=== PATIENT | female | born 1950 | race Caucasian/White ===

== ENCOUNTER 2016-11-25 11:29 | Inpatient (IN) ==
--- NOTE | 2016-11-25 12:27 | Emergency Department Note ---
Arrival - Arrival Chief Complaint: Extremity Problem Stated Complaint: fluid on leg ED Nursing Triage Note: c/o lt leg swelling onset yesterday. Mode of Arrival: Wheelchair Limitations: No Limitations Source: Patient Time Seen by Provider: 11/25/16 11:53 - History of Present Illness HPI Narrative: This is a 66-year-old white female who is complaining of left leg swelling and pain that began yesterday. She states that years ago she was bitten by a brown recluse spider and had DVT in that extremity. She states that she is not taking any blood thinners, but she is on aspirin and has a filter. She denies any fevers, shortness of breath or any other problems presently. Onset (ago): day(s) (1) Consistency: constant Severity: moderate Quality: cramping Date of Last Menstrual Period: hyst Allergies/Adverse Reactions: Allergies Allergy/AdvReac Type Severity Reaction Status Date / Time No Known Allergies Allergy Unverified 11/25/16 11:41 Home Medications: Home Medications Medication Instructions Recorded Confirmed Type Aspirin EC Tab 81 mg PO DAILY 11/25/16 11/25/16 History Gabapentin 300 mg PO QPM 11/25/16 11/25/16 History Insulin Glargine [Lantus] 30 unit SUBCUT QPM 11/25/16 11/25/16 History Lovastatin 20 mg PO QPM 11/25/16 11/25/16 History glipiZIDE XL [Glucotrol Xl] 10 mg PO DAILY 11/25/16 11/25/16 History hydroCHLOROthiazide 25 mg PO DAILY 11/25/16 11/25/16 History [Hydrochlorothiazide] Review of System - Review of System 12 point system: reviewed and no additional remarkable complaints except as stated - Review of System Constitutional: Present: as per HPI. Absent: fever Musculoskeletal: Present: as per HPI, leg pain (And swelling) Medical,Surgical,& Family Hx - Medical History Cardio: History of: Hypertension Endocrine: History of: Diabetes Mellitus (NIDDM), Dyslipidemia Other: History of: Miscellaneous Medical Problems (dvt) - Surgical History Reproductive Surgeries: Surgical HX of;: Hysterectomy - Social History Smoking Status: Never smoker Frequency of Alcohol Use: None Type of Drug Use: None Exam Physical Examination: - General General appearance: [alert, in mild distress] - Head Head exam: [Present: atraumatic, normocephalic, normal inspection] - Eye Eye exam: [Present: normal appearance, PERRL, EOMI] - ENT ENT exam: [Present: normal exam, normal oropharynx, mucous membranes moist, TM' s normal bilaterally, normal external ear exam] - Neck Neck exam: [Present: normal inspection, full ROM, trachea midline] - Chest Chest inspection: [Present: normal inspection, symmetric chest wall rise] - Respiratory Respiratory exam: [Present: normal lung sounds bilaterally] - Cardiovascular Cardiovascular exam: [Present: regular rate, normal rhythm, normal heart sounds] - Abdominal Exam Abdominal exam: [Present: soft, normal bowel sounds] - Extremities Exam Extremities exam: [Present: normal inspection, full ROM. Exception: There is edema with erythema noted to the left lower extremity without pitting. PMS is intact.] - Back Exam Back exam: [Present: normal inspection, full ROM] - Neurological Exam Neurological exam: [Present: alert, oriented X3] - Psychiatric Psychiatric exam: [Present: normal affect, normal mood] - Skin Skin exam: [Present: warm, dry, intact, normal color] Vital Signs: Vital Signs Temperature 98.2 F 11/25/16 11:50 Pulse Rate 99 H 11/25/16 11:50 Respiratory Rate 18 11/25/16 11:50 Blood Pressure 130/76 11/25/16 11:50 O2 Sat by Pulse Oximetry 96 11/25/16 11:38 Course - Consultations Consultation #1: I spoke with Andrez and hospitalist services about the patient. They will be down to see the patient in nonurgent. Time: 12:30 Results - Labs CBC & BMP: 11/25/16 12:23 11/25/16 12:23 Lab Results: I have reviewed the patients labs - Diagnostic Findings Procedure: Ultrasound: image reviewed by me, report reviewed by me (DVT of the left lower extremity) Disposition Clinical Impression: Deep vein thrombosis of lower extremity Case discussed with: patient Disposition: Still a Patient Time of Disposition: 13:26
[2016-11-25] MEDS ORDERED: HEPARIN 1,000 UNIT/1 ML VIAL IV STA (12:31)
[2016-11-25] MEDS ORDERED: HEPARIN 5,000 UNIT/1 ML VIAL ONE (12:39)
[2016-11-25 12:42] LABS: Basophils # 0.1 10*3/uL (0.0-0.2); Basophils % 0.6 % (0.0-0.8); Eosinophils # 0.1 10*3/uL (0.0-0.87); Eosinophils % 0.6 % (0.00-10.9); Hematocrit 42.6 VOL% (35.7-47.0); Hemoglobin 14.7 GM/DL (12.0-16.0); Immature Granulocytes % 0.5 %; Immature Granulocytes Absolute 0.05 #; Lymphocytes % 9.7 % (21.3-54.2); Mean Corpuscular HGB Conc 34.5 GM/DL (32-36); Mean Corpuscular Hemoglobin 30 PG (27-34); Mean Corpuscular Volume 87.8 FL (87-102); Mean Platelet Volume 11.8 FL (9.6-12.0); Monocytes # 0.5 10*3/uL (0.11-0.8); Monocytes % 5.2 % (1.7-12.7); Neutrophils # 8.3 10*3/uL (1.4-7.4); Neutrophils % 83.4 % (38.7-73.9); Platelet Count 137 T/CUMM (130-400); Red Blood Count 4.85 MC/CUMM (3.8-5.5); Red Cell Distribution Width 12.5 % (9.3-17.3); White Blood Count 9.9 T/CUMM (4-12)
--- NOTE | 2016-11-25 12:48 | Ultrasound Report ---
US venous doppler LE LT Indication: Edema/pain/history of DVT. Comparison: None. Technique: Grayscale, spectral, and color Doppler interrogation of the left lower extremity veins was performed. Augmentation and compression was performed. Findings: Grayscale, color Doppler, and pulsed Doppler evaluation of the veins of the left lower extremity demonstrates occlusive thrombus involving the left common femoral vein, saphenous vein, superficial femoral vein, and popliteal vein. IMPRESSION: Left lower extremity DVT. Discussed with Tate Yates NP at end of exam. PROCEDURE INTERPRETED AT [facility] DEPARTMENT OF RADIOLOGY Final Report Signed by: Dr Ger Niño
[2016-11-25 12:56] LABS: Apearance,Urine Slightly Hazy (Clear); Bilirubin,Urine Negative (Negative); Blood, Urine Negative (Negative); Glucose,Urine (UA) 50 mg/dL (Negative); Hyaline Casts,Urine 5 /LPF (0-3); Ketones,Urine Negative (Negative); Mucus,Urine Occasional /LPF (Occasional); Nitrite,Urine Negative (Negative); Protein,Urine Negative; RBC,Urine 1 /HPF (0-4); Squamous Epithelial Cell,Urine Occasional /HPF (0-10); Urine Color Yellow (Yellow); Urine Specific Gravity 1.025 (1.001-1.035); Urine Urobilinogen < 2.0 EU/DL (0.2-1.0); WBC,Urine 2 /HPF (0-6)
[2016-11-25 13:06] LABS: INR 1.2; PT Patient Result 12.3 SECS
[2016-11-25 13:18] LABS: Calcium 9.1 MG/DL (8.5-10.1); Osmolality,Calculated 287.5 MOS/KG (273-304); Potassium 3.3 MMOL/L (3.5-5.1)
--- NOTE | 2016-11-25 14:12 | Hospitalist History & Physical ---
<Andrez Leroy - Last Filed: 11/25/16 16:04> Assessment and Plan - Time spent with patient Time spent with patient: Greater than 30 minutes (1) Deep vein thrombosis of lower extremity Status: Acute Assessment and plan: Venous Doppler of left lower extremity shows DVT. Patient is being admitted for observation and treatment. The following labs are pending: Anti-thrombin 3 , factor V Leiden, homocystine, lupus anticoagulant, coagulopathy workup. Patient has been started on Eliquis 10 p.o. twice daily Current Visit: Yes (2) Diabetes mellitus Status: Acute Assessment and plan: Sliding-scale insulin per protocol. Lantus 30 units subcu every afternoon. Accu-Cheks ACHS Current Visit: Yes (3) Hypertension Status: Acute Assessment and plan: Continue home meds. Current Visit: Yes (4) Hyperlipidemia Status: Acute Assessment and plan: Continue home statin Current Visit: Yes (5) Peripheral neuropathy Status: Acute Current Visit: Yes History of Present Illness Chief complaint: Right LE edema History of present illness: Ms. Burns is a 66 year old white female with an extensive past medical history significant for previous DVT with IVC filter, IDDM, hypertension, hyperlipidemia who presents to the ED complaining of pain in left lower extremity and associated swelling with onset yesterday. 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 She notes that she has had an IVC filter placed for years but has not been on any anticoagulation. Patient does note that she takes aspirin daily. On exam, the patient is lying in bed in no apparent distressed. She reports that she does experience pain in her right extremity when she walks and has to stop frequently. Venous doppler of the LLE show occlusive thrombus involving the left common femoral vein, saphenous vein, superficial femoral vein and popliteal vein. Patient denies any other pain at this time. Case has been discussed with Dr. Hopkins. Patient will be admitted to the hospital medicine service for further evaluation and treatment. Home Medications Medication Instructions Recorded Confirmed Type Aspirin EC Tab 81 mg PO DAILY 11/25/16 11/25/16 History Gabapentin 300 mg PO QPM 11/25/16 11/25/16 History Insulin Glargine [Lantus] 30 unit SUBCUT QPM 11/25/16 11/25/16 History Lovastatin 20 mg PO QPM 11/25/16 11/25/16 History glipiZIDE XL [Glucotrol Xl] 10 mg PO DAILY 11/25/16 11/25/16 History hydroCHLOROthiazide 25 mg PO DAILY 11/25/16 11/25/16 History [Hydrochlorothiazide] Allergies Allergy/AdvReac Type Severity Reaction Status Date / Time No Known Allergies Allergy Unverified 11/25/16 11:41 Medical,Surgical,& Family Hx - Medical History Cardio: History of: Hypertension Endocrine: History of: Diabetes Mellitus (NIDDM), Dyslipidemia Other: History of: Miscellaneous Medical Problems (dvt) - Surgical History Reproductive Surgeries: Surgical HX of;: Hysterectomy - Family History Family History: Reports;: Family Hypertension - Social History Smoking Status: Never smoker Frequency of Alcohol Use: None Type of Drug Use: None Marital Status: Lives With:: Spouse Functional capacity: independent ambulation - Constitutional Constitutional: Present: weakness. Absent: chills, fatigue, headache(s) - EENT Eyes: Absent: blurry vision, loss of vision Ears: Absent: decreased hearing, ear pain Nose, mouth and throat: Absent: headache(s) - Cardiovascular Cardiovascular: Present: edema. Absent: chest pain at rest, dyspnea, dyspnea on exertion, radiating jaw, neck or arm pain, orthopnea - Respiratory Respiratory: Absent: cough, dyspnea, dyspnea on exertion, wheezing, pain on inspiration - Gastrointestinal Gastrointestinal: Absent: abdominal pain, cramping, diarrhea, nausea, vomiting - Musculoskeletal Musculoskeletal: Present: limited range of motion, other (left lower extremity swelling) - Neurological Neurological: Present: numbness, paresthesias. Absent: abnormal gait, dizziness , syncope - Psychiatric Psychiatric: Absent: anxiety - Endocrine Endocrine: Present: fatigue. Absent: cold intolerance, heat intolerance - Hematologic/Lymphatic Hematologic/Lymphatic: Absent: easy bleeding, easy bruising Exam - Constitutional Vitals: Period Temp Pulse Resp BP Sys/Olmos Pulse Ox Last 24 Hr 98.2 F-98.2 F 86-99 18-18 130-184/76-98 96 General appearance: no acute distress, morbidly obese - Head Head exam: Present: normal inspection, normocephalic, atraumatic - Eye Eye exam: Present: EOMI Pupils: Present: MARCUS - ENT ENT exam: Present: normal exam, normal external ear exam - Neck Neck exam: Present: normal inspection. Absent: lymphadenopathy, tenderness, thyromegaly - Respiratory Respiratory exam: Present: clear to auscultation bilaterally. Absent: rales, rhonchi, wheezes - Cardiovascular Cardiovascular exam: Present: regular rate and rhythm. Absent: bradycardia, irregular rhythm - GI/Abdominal GI/Abdominal exam: Present: normal bowel sounds, soft. Absent: ascites, distended, mass, tenderness - Extremities Exam Extremities exam: Present: normal capillary refill, calf tenderness, edema. Absent: full ROM - Back Exam Back exam: Present: normal inspection. Absent: CVA tenderness (L), CVA tenderness (R) - Neurological Exam Neurological exam: Present: alert, oriented X3, CN II-XII intact - Psychiatric Psychiatric exam: Present: normal affect, normal mood - Skin Skin exam: Present: normal color, warm, dry. Absent: abrasion Results - Labs CBC & BMP: 11/25/16 12:23 11/25/16 12:23 Lab Results: I have reviewed the past 24 hour labs - EKG EKG results: interpreted by ERMD - Diagnostic Findings Procedure: Ultrasound: image reviewed by me, report reviewed by me (DVT) <Rosy Hopkins - Last Filed: 11/25/16 16:43> Assessment and Plan (1) Deep vein thrombosis of lower extremity Status: Acute Assessment and plan: Verify the patient had a filter placed. Will get a KUB. Current Visit: Yes (2) Morbid obesity Status: Acute Assessment and plan: Needs to lose weight. Current Visit: Yes (3) Diabetes mellitus Status: Acute Current Visit: Yes (4) Hyperlipidemia Status: Acute Current Visit: Yes (5) Hypertension Status: Acute Assessment and plan: Hold hydrochlorothiazide Current Visit: Yes (6) Hypokalemia Status: Acute Assessment and plan: Replacing and recheck in am Current Visit: Yes (7) Chronic renal failure, stage 3 (moderate) Status: Acute Assessment and plan: Hold hydrochlorothiazide recheck in a.m. Current Visit: Yes History of Present Illness History of present illness: Ms. Burns is a 66 year old female seen and examined. History and physical reviewed and edited. Patient has a difficult historian as she gives me more details then you need to now. She still has not given me a good reason why she had a filter. Exam - Constitutional Vitals: Period Temp Pulse Resp BP Sys/Olmos Pulse Ox Last 24 Hr 97.6 F-98.2 F 86-99 18-20 130-184/76-98 96-98 - Eye Eye exam: Absent: scleral icterus Pupils: Present: normal accommodation Results - Labs CBC & BMP: 11/25/16 12:23 11/25/16 12:23 - Diagnostic Findings Procedure: Ultrasound: report reviewed by me
[2016-11-25] MEDS ORDERED: GLUCAGON 1 MG VIAL IM PRN (15:47)
[2016-11-25] MEDS ORDERED: ONDANSETRON 4 MG/2 ML VIAL IV PRN (15:47)
[2016-11-25] MEDS ORDERED: ACETAMINOPHEN 325 MG TABLET PO PRN (15:47)
[2016-11-25] MEDS ORDERED: DEXTROSE 50% 25 GM/50 ML VIAL IV PRN (15:47)
[2016-11-25] MEDS ORDERED: POTASSIUM CHLORIDE 20 MEQ TABLET PO ONE (16:42)
[2016-11-25] MEDS: APIXABAN 5 MG TABLET PO SCH ×2 (17:15→20:20)
--- NOTE | 2016-11-25 18:20 | XRay Report ---
KUB. Indication: Looking for IVC filter. An IVC filter is in place, spanning from the lower aspect of T12 to the upper aspect of L2. There is a left iliac vein stent in place as well. The bowel gas pattern is normal. No evidence of bowel obstruction. Mild degenerative changes of the spinal column and hips. Impression: An IVC filter is in place, and there is also visible a left iliac vein stent. PROCEDURE INTERPRETED AT [facility] DEPARTMENT OF RADIOLOGY Final Report Signed by: Dr. Eulalia Boothe
[2016-11-25] MEDS: INSULIN LISPRO 100 UNIT/ML SUBCUT SCH ×2 (18:30→20:34)
[2016-11-25] MEDS ORDERED: GABAPENTIN 300 MG CAPSULE PO SCH (19:00)
[2016-11-25] MEDS ORDERED: LOVASTATIN 20 MG TABLET PO SCH (19:00)
[2016-11-25] MEDS ORDERED: INSULIN GLARGINE 100 UNIT/ML SUBCUT SCH (19:00)
[2016-11-26 06:59] LABS: Basophils # 0.1 10*3/uL (0.0-0.2); Basophils % 0.7 % (0.0-0.8); Eosinophils # 0.1 10*3/uL (0.0-0.87); Eosinophils % 1.9 % (0.00-10.9); Hematocrit 41.8 VOL% (35.7-47.0); Hemoglobin 14.2 GM/DL (12.0-16.0); Immature Granulocytes % 0.4 %; Immature Granulocytes Absolute 0.03 #; Lymphocytes # 1.6 10*3/uL (1.4-4.0); Lymphocytes % 22.2 % (21.3-54.2); Mean Corpuscular Hemoglobin 30 PG (27-34); Mean Corpuscular Volume 88.2 FL (87-102); Mean Platelet Volume 11.5 FL (9.6-12.0); Monocytes # 0.5 10*3/uL (0.11-0.8); Monocytes % 6.3 % (1.7-12.7); Neutrophils % 68.5 % (38.7-73.9); Platelet Count 137 T/CUMM (130-400); Red Blood Count 4.74 MC/CUMM (3.8-5.5); Red Cell Distribution Width 12.6 % (9.3-17.3); White Blood Count 7.4 T/CUMM (4-12)
[2016-11-26 07:33] LABS: Calcium 8.9 MG/DL (8.5-10.1); Osmolality,Calculated 284.4 MOS/KG (273-304); Potassium 3.3 MMOL/L (3.5-5.1)
[2016-11-26] MEDS ORDERED: hydroCHLOROthiazide 25 MG TABLET PO SCH (09:00)
[2016-11-26] MEDS ORDERED: ASPIRIN EC 81 MG TABLET PO SCH (09:00)
[2016-11-26] MEDS ORDERED: POTASSIUM CHLORIDE 20 MEQ TABLET PO ONE (09:50)
[2016-11-26] MEDS: APIXABAN 5 MG TABLET PO SCH (10:12)
[2016-11-26] MEDS: INSULIN LISPRO 100 UNIT/ML SUBCUT SCH ×2 (10:13→11:45)
--- NOTE | 2016-11-26 10:45 | Discharge Summary ---
Hospital Course - Hospital Course Hospital Course: 66-year-old morbidly obese female with a history of hypertension and diabetes presents with left lower extremity swelling. Patient already has a filter in place but could not tell me why. Hypercoagulable workup has been ordered. Venous Doppler showed an extensive thrombus occluding the left common femoral vein, saphenous vein, superficial femoral and popliteal vein. Patient denies any estrogen supplementation. The patient has never had a clot before then she will need 3 months of treatment if however she has had a DVT or PE before she will need to have a lifetime treatment. Patient will follow up with her primary care physician for the results of the hypercoagulable workup. Follow- up at [facility] in 1-2 weeks. - Time spent with patient Time with patient DS: Less than 30 minutes (25 min) Diagnosis - Discharge Diagnosis (1) Deep vein thrombosis of lower extremity Status: Acute (2) Morbid obesity Status: Acute (3) Diabetes mellitus Status: Acute (4) Hyperlipidemia Status: Acute (5) Hypertension Status: Acute (6) Hypokalemia Status: Acute (7) Chronic renal failure, stage 3 (moderate) Status: Acute Discharge Plan - Discharge Data Disposition: Disch To Home/Self Care Condition at Discharge: Stable Discharge Diet: diabetic diet Activity: resume usual activities as tolerated Hygiene: no restrictions Weight Bearing at Discharge: full weight bearing Driving: no restrictions - Discharge Medications New Losartan [Cozaar] 25 mg PO DAILY #30 tablet Apixaban [Eliquis] 5 mg PO BID #72 tablet Continue Insulin Glargine [Lantus] 30 unit SUBCUT QPM Gabapentin 300 mg PO QPM glipiZIDE XL [Glucotrol Xl] 10 mg PO DAILY Lovastatin 20 mg PO QPM Discontinued hydroCHLOROthiazide [Hydrochlorothiazide] 25 mg PO DAILY Aspirin EC Tab 81 mg PO DAILY - Follow Up or Referral Follow Up: [facility] [Provider Group] - 2 Weeks - Forms/Instructions Exam - Constitutional Vitals: Period Temp Pulse Resp BP Sys/Olmos Pulse Ox Last 24 Hr 97.3 F-98.5 F 75-99 18-20 127-184/63-98 95-98 General appearance: no acute distress, morbidly obese - Respiratory Respiratory exam: Present: clear to auscultation bilaterally. Absent: rhonchi, wheezes - Cardiovascular Cardiovascular exam: Present: regular rate and rhythm. Absent: systolic murmur - GI/Abdominal GI/Abdominal exam: Present: normal bowel sounds, soft. Absent: tenderness - Extremities Exam Extremities exam: Present: normal capillary refill, edema - Neurological Exam Neurological exam: Present: alert, oriented X3 Discharge Results Procedures and tests throughout hospitalization: Pending Orders 11/25/16 16:21 Anti-Thrombin III Routine Factor V Leiden (R506Q) Mutati Routine Homocysteine Routine Lupus Anticoag Prof Routine MTHFR C677T Mutation Analysis, Routine Phospholipid Ab, IgG/M Routine Protein C Activity Plasma Routine Protein C Antigen Routine Protein S Ag, P Routine Prothrombin [id number] Mutation, Routine Labs on day of discharge: Labs from last 24 hours 11/26/16 11/26/16 11/26/16 07:10 06:45 06:45 WBC 7.4 RBC 4.74 Hgb 14.2 Hct 41.8 MCV 88.2 MCH 30 MCHC 34.0 RDW 12.6 Plt Count 137 MPV 11.5 Neut % (Auto) 68.5 Lymph % (Auto) 22.2 [place] % (Auto) 6.3 Eos % (Auto) 1.9 Baso % (Auto) 0.7 Neut # (Auto) 5.0 Lymph # (Auto) 1.6 [place] # (Auto) 0.5 Eos # (Auto) 0.1 Baso # (Auto) 0.1 Immature Gran % 0.4 Nucleated RBC % 0.0 Immature Gran # 0.03 Nucleated RBCs # 0.00 INR PT Patient/Control Mix Sodium 140 Potassium 3.3 L Chloride 101 Carbon Dioxide 30 Anion Gap 12.3 BUN 21 H Creatinine 1.30 H GFR Calculation 53 BUN/Creatinine Ratio 16.00 Glucose 157 H POC Glucose 147 H Calculated Osmolality 284.4 Calcium 8.9 Urine Color Urine Appearance Urine pH Ur Specific [place] Urine Protein Urine Glucose (UA) Urine Ketones Urine Blood Urine Nitrate Urine Bilirubin Urine Urobilinogen Urine Leukocytes Urine RBC Urine WBC Ur Squamous Epith Cells Hyaline Casts Urine Mucus Ur Culture Indicated? 11/25/16 11/25/16 11/25/16 19:32 17:23 12:23 WBC RBC Hgb Hct MCV MCH MCHC RDW Plt Count MPV Neut % (Auto) Lymph % (Auto) [place] % (Auto) Eos % (Auto) Baso % (Auto) Neut # (Auto) Lymph # (Auto) [place] # (Auto) Eos # (Auto) Baso # (Auto) Immature Gran % Nucleated RBC % Immature Gran # Nucleated RBCs # INR PT Patient/Control Mix Sodium 139 Potassium 3.3 L Chloride 102 Carbon Dioxide 24 Anion Gap 16.3 H BUN 23 H Creatinine 1.50 H GFR Calculation 45 BUN/Creatinine Ratio 15.00 Glucose 218 H POC Glucose 191 H 110 H Calculated Osmolality 287.5 Calcium 9.1 Urine Color Urine Appearance Urine pH Ur Specific [place] Urine Protein Urine Glucose (UA) Urine Ketones Urine Blood Urine Nitrate Urine Bilirubin Urine Urobilinogen Urine Leukocytes Urine RBC Urine WBC Ur Squamous Epith Cells Hyaline Casts Urine Mucus Ur Culture Indicated? 11/25/16 11/25/16 11/25/16 12:23 12:23 12:23 WBC 9.9 RBC 4.85 Hgb 14.7 Hct 42.6 MCV 87.8 MCH 30 MCHC 34.5 RDW 12.5 Plt Count 137 MPV 11.8 Neut % (Auto) 83.4 H Lymph % (Auto) 9.7 L [place] % (Auto) 5.2 Eos % (Auto) 0.6 Baso % (Auto) 0.6 Neut # (Auto) 8.3 H Lymph # (Auto) 1.0 L [place] # (Auto) 0.5 Eos # (Auto) 0.1 Baso # (Auto) 0.1 Immature Gran % 0.5 Nucleated RBC % 0.0 Immature Gran # 0.05 Nucleated RBCs # 0.00 INR 1.2 PT Patient/Control Mix 12.3 Sodium Potassium Chloride Carbon Dioxide Anion Gap BUN Creatinine GFR Calculation BUN/Creatinine Ratio Glucose POC Glucose Calculated Osmolality Calcium Urine Color Yellow Urine Appearance Slightly hazy Urine pH 5.0 Ur Specific [place] 1.025 Urine Protein Negative Urine Glucose (UA) 50 Urine Ketones Negative Urine Blood Negative Urine Nitrate Negative Urine Bilirubin Negative Urine Urobilinogen < 2.0 H Urine Leukocytes Trace Urine RBC 1 Urine WBC 2 Ur Squamous Epith Cells Occasional Hyaline Casts 5 Urine Mucus Occasional Ur Culture Indicated? Not indicated DS: Provider Date of admission: 11/25/16 13:31 Primary care physician: . No PCP Attending physician on admission: Rosy Hopkins MD Consults: 11/26/16 09:50 Consult to Case Mgmt/Social Srvs [CONS] Routine Reason for Case Mgmt/Social Srvs: Other Consult Comment: [employer] savings card Discharging clinician: Rosy Hopkins MD
[2016-11-26 11:58] VITALS: BP 133/64
[2016-11-27] MEDS ORDERED: LOSARTAN 25 MG TABLET PO SCH (09:00)
[2016-11-27 11:25] LABS: Protein C Activity Plasma 109 % (70 - 150)
[2016-11-27 15:19] LABS: Phospholipid Ab IgM, S 14.1 MPL
[2016-11-28 09:50] LABS: Factor V Leiden (R506Q) Mutati Negative (Negative); Methylenetetrahydrofol Reduc M Negative (Negative)
[2016-11-28 15:19] LABS: Homocysteine 15 mcmol/L
[2016-11-28 16:54] LABS: Protein C Antigen 91 % (70-150)
[2016-12-02 10:42] LABS: DRVVT Mix Ratio (Mayo Reflex) 1.2 ratio (0.0 - 1.1); Thrombin Time (Bovine), P 20 sec (15 - 23)
[2016-12-03 09:20] LABS: DRVVT Screen Ratio 1.2 ratio (0.0 - 1.1); INR 1.2
== END 2016-11-26 14:14 | disposition home health service (06) | DRG 300 ==
LOC: N.ED 11:29 → N.5E 13:31
PROVIDERS: ADMIT Internal Medicine; ATTEND Internal Medicine

== ENCOUNTER 2017-11-29 21:51 | Inpatient (IN) ==
[2017-11-30] MEDS ORDERED: ONDANSETRON 4 MG/2 ML VIAL ONE (02:23)
[2017-11-30] MEDS ORDERED: ONDANSETRON 4 MG/2 ML VIAL IV STA (02:27)
[2017-11-30] MEDS ORDERED: SODIUM CHLORIDE 0.9% 1,000 ML IV STA (02:27)
[2017-11-30 02:32] LABS: Basophils % 0.4 % (0.0-0.8); Hematocrit 47.7 VOL% (35.7-47.0); Hemoglobin 15.9 GM/DL (12.0-16.0); Immature Granulocytes % 0.3 %; Immature Granulocytes Absolute 0.03 #; Lymphocytes # 1.5 10*3/uL (1.4-4.0); Lymphocytes % 13.4 % (21.3-54.2); Mean Corpuscular HGB Conc 33.3 GM/DL (32-36); Mean Corpuscular Hemoglobin 30 PG (27-34); Mean Corpuscular Volume 90.3 FL (87-102); Mean Platelet Volume 11.9 FL (9.6-12.0); Monocytes # 0.7 10*3/uL (0.11-0.8); Monocytes % 5.9 % (1.7-12.7); Neutrophils # 9.1 10*3/uL (1.4-7.4); Platelet Count 184 T/CUMM (130-400); Red Blood Count 5.28 MC/CUMM (3.8-5.5); White Blood Count 11.3 T/CUMM (4-12)
[2017-11-30 02:44] LABS: Albumin 3.6 G/DL (3.4-5.0); Bilirubin,Total 0.7 MG/DL (0.2-1.0); Lactic Acid 0.7 MMOL/L (0.4-2.0); Osmolality,Calculated 276.7 MOS/KG (273-304); Potassium 4.3 MMOL/L (3.5-5.1); Total Protein 7.8 G/DL (6.4-8.3)
[2017-11-30 03:05] LABS: INR 1.1; PT Patient Result 11.9 SECS; Partial Thromboplastin Time 36.3 SECS (0-40)
[2017-11-30 04:13] LABS: Apearance,Urine Slightly Hazy (Clear); Bilirubin,Urine Negative (Negative); Blood, Urine Negative (Negative); Glucose,Urine (UA) Negative (Negative); Hyaline Casts,Urine 2 /LPF (0-3); Ketones,Urine 80 mg/dL (Negative); Mucus,Urine Occasional /LPF (Occasional); Nitrite,Urine Negative (Negative); Protein,Urine 30 MG/DL; RBC,Urine 9 /HPF (0-4); Squamous Epithelial Cell,Urine Occasional /HPF (0-10); Urine Color Amber (Yellow); Urine Specific Gravity 1.028 (1.001-1.035); WBC,Urine 142 /HPF (0-6)
[2017-11-30] MEDS ORDERED: cefTRIAXone 1,000 MG in SODIUM CHLORIDE 0.9% 100 ML IV STA (05:35)
[2017-11-30] MEDS ORDERED: ACETAMINOPHEN 325 MG TABLET PO PRN (08:48)
[2017-11-30] MEDS ORDERED: GLUCAGON 1 MG VIAL IM PRN (08:48)
[2017-11-30] MEDS ORDERED: DEXTROSE 50% 25 GM/50 ML VIAL IV PRN (08:48)
[2017-11-30] MEDS ORDERED: PROMETHAZINE 25 MG/1 ML VIAL IM PRN (08:48)
[2017-11-30] MEDS ORDERED: MORPHINE 4 MG/1 ML VIAL IV PRN (08:48)
[2017-11-30] MEDS ORDERED: ONDANSETRON 4 MG/2 ML VIAL IV PRN (08:48)
[2017-11-30] MEDS: PANTOPRAZOLE 40 MG TABLET PO SCH (09:05)
[2017-11-30] MEDS: LACTATED RINGERS 1,000 ML IV SCH ×2 (09:43→21:56)
[2017-11-30] MEDS: PIPERACILLIN/TAZOBACTAM 3,375 MG in SODIUM CHLORIDE 0.9% 100 ML IV SCH ×2 (09:43→17:16)
[2017-11-30] MEDS: INSULIN REGULAR 100 UNIT/ML SUBCUT SCH ×4 (13:09→21:56)
[2017-11-30] MEDS ORDERED: PNEUMOCOCCAL VACCINE (13 VALENT) 0.5 ML SYRINGE IM ONE (13:52)
[2017-11-30] MEDS: LOVASTATIN 20 MG TABLET PO SCH (21:56)
[2017-11-30] MEDS: GABAPENTIN 300 MG CAPSULE PO SCH (21:56)
[2017-12-01] MEDS: PIPERACILLIN/TAZOBACTAM 3,375 MG in SODIUM CHLORIDE 0.9% 100 ML IV SCH ×3 (01:04→18:15)
[2017-12-01] MEDS: LACTATED RINGERS 1,000 ML IV SCH ×2 (02:21→09:40)
[2017-12-01 06:53] LABS: Basophils % 0.4 % (0.0-0.8); Eosinophils % 0.1 % (0.00-10.9); Hematocrit 44.2 VOL% (35.7-47.0); Hemoglobin 14.8 GM/DL (12.0-16.0); Immature Granulocytes % 0.6 %; Immature Granulocytes Absolute 0.06 #; Lymphocytes # 0.9 10*3/uL (1.4-4.0); Lymphocytes % 8.8 % (21.3-54.2); Mean Corpuscular HGB Conc 33.5 GM/DL (32-36); Mean Corpuscular Hemoglobin 30 PG (27-34); Mean Corpuscular Volume 90.8 FL (87-102); Mean Platelet Volume 12.1 FL (9.6-12.0); Monocytes # 0.8 10*3/uL (0.11-0.8); Monocytes % 7.5 % (1.7-12.7); Neutrophils # 8.3 10*3/uL (1.4-7.4); Neutrophils % 82.6 % (38.7-73.9); Platelet Count 151 T/CUMM (130-400); Red Blood Count 4.87 MC/CUMM (3.8-5.5); Red Cell Distribution Width 11.9 % (9.3-17.3); White Blood Count 10.1 T/CUMM (4-12)
[2017-12-01 07:15] LABS: Albumin 3.1 G/DL (3.4-5.0); Bilirubin,Total 0.8 MG/DL (0.2-1.0); Calcium 8.8 MG/DL (8.5-10.1); Osmolality,Calculated 274.8 MOS/KG (273-304); Potassium 4.3 MMOL/L (3.5-5.1); Total Protein 6.9 G/DL (6.4-8.3)
[2017-12-01] MEDS: INSULIN REGULAR 100 UNIT/ML SUBCUT SCH ×4 (08:36→21:07)
[2017-12-01] MEDS: PANTOPRAZOLE 40 MG TABLET PO SCH (09:41)
[2017-12-01] MEDS ORDERED: hydrALAZINE 20 MG/1 ML VIAL IV ONE (13:50)
[2017-12-01] MEDS: LOVASTATIN 20 MG TABLET PO SCH (21:05)
[2017-12-01] MEDS: GABAPENTIN 300 MG CAPSULE PO SCH (21:05)
[2017-12-02] MEDS: PIPERACILLIN/TAZOBACTAM 3,375 MG in SODIUM CHLORIDE 0.9% 100 ML IV SCH ×2 (01:42→11:29)
[2017-12-02] MEDS: LACTATED RINGERS 1,000 ML IV SCH ×4 (01:44→18:53)
[2017-12-02] MEDS ORDERED: TISSUE ADHESIVE 1 EACH APPLICATOR TOP ONE (06:35)
[2017-12-02] MEDS ORDERED: LIDOCAINE 1%/EPI INJ 20 ML VIAL ONE (06:35)
[2017-12-02] MEDS: PANTOPRAZOLE 40 MG TABLET PO SCH (08:24)
[2017-12-02] MEDS: INSULIN REGULAR 100 UNIT/ML SUBCUT SCH ×4 (08:24→20:20)
[2017-12-02] MEDS ORDERED: MORPHINE 4 MG/1 ML VIAL IV PRN (09:40)
[2017-12-02] MEDS ORDERED: GLUCAGON 1 MG VIAL IM PRN (09:40)
[2017-12-02] MEDS ORDERED: ONDANSETRON 4 MG/2 ML VIAL IV PRN (09:40)
[2017-12-02] MEDS ORDERED: PROMETHAZINE 25 MG/1 ML VIAL IM PRN (09:40)
[2017-12-02] MEDS ORDERED: DEXTROSE 50% 25 GM/50 ML VIAL IV PRN (09:40)
[2017-12-02] MEDS ORDERED: PROPOFOL 200 MG/20 ML VIAL IV ONE (09:44)
[2017-12-02] MEDS ORDERED: SEVOFLURANE 1 UNIT/15 MINUTE INH ONE (09:44)
[2017-12-02] MEDS ORDERED: KETOROLAC 30 MG/1 ML VIAL ONE (09:45)
[2017-12-02] MEDS ORDERED: fentaNYL 100 MCG/2 ML VIAL ONE (09:45)
[2017-12-02] MEDS ORDERED: MIDAZOLAM 2 MG/2 ML VIAL ONE (09:45)
[2017-12-02] MEDS ORDERED: ONDANSETRON 4 MG/2 ML VIAL ONE (09:45)
[2017-12-02] MEDS ORDERED: ACETAMINOPHEN 1,000 MG/100 ML VIAL IV ONE (09:45)
[2017-12-02] MEDS ORDERED: ROCURONIUM 100 MG/10 ML VIAL IV ONE (09:45)
[2017-12-02] MEDS ORDERED: hydrALAZINE 20 MG/1 ML VIAL ONE (09:54)
[2017-12-02] MEDS ORDERED: hydrALAZINE 20 MG/1 ML VIAL IV ONE (09:55)
[2017-12-02 10:04] LABS: Basophils % 0.3 % (0.0-0.8); Eosinophils % 0.2 % (0.00-10.9); Hematocrit 41.6 VOL% (35.7-47.0); Hemoglobin 13.7 GM/DL (12.0-16.0); Immature Granulocytes % 0.4 %; Immature Granulocytes Absolute 0.05 #; Lymphocytes # 0.9 10*3/uL (1.4-4.0); Lymphocytes % 7.6 % (21.3-54.2); Mean Corpuscular HGB Conc 32.9 GM/DL (32-36); Mean Corpuscular Hemoglobin 31 PG (27-34); Mean Corpuscular Volume 92.7 FL (87-102); Mean Platelet Volume 11.7 FL (9.6-12.0); Monocytes # 0.8 10*3/uL (0.11-0.8); Monocytes % 6.7 % (1.7-12.7); Neutrophils # 10.2 10*3/uL (1.4-7.4); Neutrophils % 84.8 % (38.7-73.9); Platelet Count 163 T/CUMM (130-400); Red Blood Count 4.49 MC/CUMM (3.8-5.5); Red Cell Distribution Width 11.9 % (9.3-17.3); White Blood Count 12.1 T/CUMM (4-12)
[2017-12-02 10:21] LABS: Calcium 8.4 MG/DL (8.5-10.1); Potassium 4.2 MMOL/L (3.5-5.1)
[2017-12-02] MEDS: LOVASTATIN 20 MG TABLET PO SCH (20:21)
[2017-12-02] MEDS: GABAPENTIN 300 MG CAPSULE PO SCH (20:21)
[2017-12-03] MEDS: LACTATED RINGERS 1,000 ML IV SCH (02:45)
[2017-12-03] MEDS ORDERED: ENOXAPARIN 40 MG/0.4 ML SYRINGE SUBCUT SCH (03:20)
[2017-12-03 06:08] LABS: Basophils % 0.3 % (0.0-0.8); Eosinophils % 0.3 % (0.00-10.9); Hematocrit 39.5 VOL% (35.7-47.0); Immature Granulocytes % 0.6 %; Immature Granulocytes Absolute 0.04 #; Lymphocytes # 0.9 10*3/uL (1.4-4.0); Lymphocytes % 12.2 % (21.3-54.2); Mean Corpuscular HGB Conc 32.9 GM/DL (32-36); Mean Corpuscular Hemoglobin 30 PG (27-34); Mean Corpuscular Volume 91.6 FL (87-102); Mean Platelet Volume 12.2 FL (9.6-12.0); Monocytes # 0.5 10*3/uL (0.11-0.8); Monocytes % 6.2 % (1.7-12.7); Neutrophils # 5.8 10*3/uL (1.4-7.4); Neutrophils % 80.4 % (38.7-73.9); Platelet Count 151 T/CUMM (130-400); Red Blood Count 4.31 MC/CUMM (3.8-5.5); Red Cell Distribution Width 11.9 % (9.3-17.3); White Blood Count 7.2 T/CUMM (4-12)
[2017-12-03 06:40] LABS: Calcium 8.3 MG/DL (8.5-10.1); Osmolality,Calculated 275.5 MOS/KG (273-304); Potassium 3.8 MMOL/L (3.5-5.1)
[2017-12-03] MEDS: INSULIN REGULAR 100 UNIT/ML SUBCUT SCH ×2 (08:55→12:26)
[2017-12-03] MEDS ORDERED: APIXABAN 5 MG TABLET PO SCH (09:00)
[2017-12-03 10:47] VITALS: BP 120/84
== END 2017-12-03 16:00 | disposition home or self-care (01) | DRG 419 ==
LOC: N.ED 21:51 → N.EDINP 11-30 07:00 → N.2W 11-30 12:28 → N.3E 11-30 16:32
PROVIDERS: ADMIT Surgery; ATTEND Surgery
PROC: LAPCHOL (2017-12-02 06:59)

== ENCOUNTER 2021-02-08 12:17 | Observation (INO) ==
[2021-02-08 13:35] LABS: Basophils # 0.1 10*3/uL (0.0-0.2); Basophils % 0.7 % (0.0-0.8); Eosinophils # 0.1 10*3/uL (0.0-0.87); Eosinophils % 0.7 % (0.00-10.9); Hematocrit 42.4 VOL% (35.7-47.0); Hemoglobin 13.9 GM/DL (12.0-16.0); Immature Granulocytes % 0.8 %; Immature Granulocytes Absolute 0.07 #; Lymphocytes # 1.1 10*3/uL (1.4-4.0); Lymphocytes % 13.8 % (21.3-54.2); Mean Corpuscular HGB Conc 32.8 GM/DL (32-36); Mean Corpuscular Volume 91.8 FL (87-102); Mean Platelet Volume 12.2 FL (9.6-12.0); Monocytes % 6.3 % (1.7-12.7); Neutrophils % 77.7 % (38.7-73.9); Platelet Count 134 T/CUMM (130-400); Red Blood Count 4.62 MC/CUMM (3.8-5.5); Red Cell Distribution Width 12.3 % (9.3-17.3); White Blood Count 8.3 T/CUMM (4-12)
[2021-02-08 13:52] LABS: Calcium 8.6 MG/DL (8.5-10.1); Potassium 4.7 MMOL/L (3.5-5.1)
[2021-02-08] MEDS ORDERED: ENOXAPARIN 100 MG/ML SYRINGE SUBCUT STA (15:01)
[2021-02-08] MEDS ORDERED: ACETAMINOPHEN 325 MG TABLET PO PRN (15:09)
[2021-02-08] MEDS ORDERED: GLUCAGON 1 MG VIAL IM PRN ×2 (15:09→15:19)
[2021-02-08] MEDS ORDERED: ONDANSETRON 4 MG/2 ML VIAL IV PRN (15:09)
[2021-02-08] MEDS ORDERED: DEXTROSE 50% 25 GM/50 ML VIAL IV PRN ×2 (15:09→15:19)
[2021-02-08] MEDS ORDERED: tiZANidine 4 MG TABLET PO PRN (15:14)
[2021-02-08] MEDS: hydrALAZINE 20 MG/1 ML VIAL IV SCH ×2 (17:30→20:43)
[2021-02-08] MEDS: ATORVASTATIN 40 MG TABLET PO SCH (17:50)
[2021-02-08] MEDS: SODIUM CHLORIDE 0.9% 1,000 ML IV SCH ×2 (17:51→21:07)
[2021-02-08] MEDS: PANTOPRAZOLE 40 MG TABLET PO SCH (17:52)
[2021-02-08] MEDS: INSULIN LISPRO 100 UNIT/ML SUBCUT SCH ×2 (18:49→20:43)
[2021-02-08] MEDS: APIXABAN 2.5 MG TABLET PO SCH (20:42)
[2021-02-08] MEDS ORDERED: GABAPENTIN 300 MG CAPSULE PO SCH (21:00)
[2021-02-08] MEDS ORDERED: APIXABAN 5 MG TABLET PO SCH (21:00)
[2021-02-08] MEDS ORDERED: INSULIN GLARGINE 100 UNIT/ML SUBCUT SCH (21:00)
[2021-02-09] MEDS: hydrALAZINE 20 MG/1 ML VIAL IV SCH ×2 (03:08→08:58)
[2021-02-09 07:05] LABS: Basophils % 0.7 % (0.0-0.8); Eosinophils # 0.1 10*3/uL (0.0-0.87); Hematocrit 41.5 VOL% (35.7-47.0); Hemoglobin 13.3 GM/DL (12.0-16.0); Immature Granulocytes % 0.5 %; Immature Granulocytes Absolute 0.03 #; Lymphocytes # 1.5 10*3/uL (1.4-4.0); Lymphocytes % 24.2 % (21.3-54.2); Mean Corpuscular Volume 93.9 FL (87-102); Mean Platelet Volume 11.2 FL (9.6-12.0); Monocytes % 7.3 % (1.7-12.7); Neutrophils % 65.3 % (38.7-73.9); Platelet Count 135 T/CUMM (130-400); Red Blood Count 4.42 MC/CUMM (3.8-5.5); Red Cell Distribution Width 12.6 % (9.3-17.3)
[2021-02-09] MEDS: INSULIN LISPRO 100 UNIT/ML SUBCUT SCH ×2 (07:36→11:25)
[2021-02-09 07:56] LABS: Calcium 8.5 MG/DL (8.5-10.1); Osmolality,Calculated 282.4 MOS/KG (273-304); Potassium 3.7 MMOL/L (3.5-5.1)
[2021-02-09 08:00] VITALS: BP 124/62
[2021-02-09] MEDS: APIXABAN 2.5 MG TABLET PO SCH (08:57)
[2021-02-09] MEDS: ATORVASTATIN 40 MG TABLET PO SCH (08:57)
[2021-02-09] MEDS: PANTOPRAZOLE 40 MG TABLET PO SCH (08:58)
[2021-02-09] MEDS: SODIUM CHLORIDE 0.9% 1,000 ML IV SCH (09:02)
== END 2021-02-09 13:59 | disposition home or self-care (01) ==
LOC: N.ED 12:17 → N.EDINP 12:17 → SUATTDRO 16:59 → N.TELEN 17:45
PROVIDERS: ADMIT Internal Medicine; ATTEND Internal Medicine